=== PATIENT | male | born 1955 | race African-American/Black ===

== ENCOUNTER 2017-06-18 09:03 | Day surgery (SDC) | payer BC ==
[2017-06-18] VITALS (8 sets, daily range): BP systolic 108–126; BP diastolic 64–76
[~2017-06-18] VITALS: Ht 177.8 cm; Wt 72.6 kg
[2017-06-18] MEDS ORDERED: NKM (09:52)
--- NOTE | 2017-06-18 11:18 | Pre-Procedure Note/Attestation ---
Pre-Procedure Note/Attestation Complete Prior to Procedure Planned Procedure: not applicable Procedure Narrative: egd/colon Indications for Procedure Pre-Operative Diagnosis: gerd,screening colon Attestation I attest that I discussed the nature of the procedure; its benefits; risks and complications; and alternatives (and the risks and benefits of such alternatives ), prior to the procedure, with the patient (or the patient's legal renewals representative). I attest that, if there was a reasonable possibility of needing a blood transfusion, the patient (or the patient's legal renewals representative) was given the [facility] standardized written summary, pursuant to the Bryan Valente Blood Safety Act ([place] Health and Safety Code # 1645, as amended). I attest that I re-evaluated the patient just prior to the surgery and that there has been no change in the patient's H&P, except as documented below: NATALIO SAENZ Jun 18, 2017 11:18
[2017-06-18] MEDS ORDERED: Propofol 10mg/ml 20ml IV ONE (11:30)
[2017-06-18] MEDS ORDERED: Lidocaine 1% MPF 10mg/ml 5ml ONE (11:30)
--- NOTE | 2017-06-18 11:50 | Endoscopy Procedure Note ---
Endoscopy Procedure Note Indication for Procedure: gerd, screening colon Procedures Performed: EGD, colonoscopy Operative Findings/Diagnosis: gastritis, hemorrhoids Specimen: yes Pt Tolerated Procedure Well: Yes Estimated Blood Loss: none Anesthesiologist: marcin Anesthesia: MAC Implant(s) used?: No 50 yrs or older w/o bx or poly: Yes 10yrs. F/U not recommended: Yes If not recommended, why?: Above average risk 10 yrs. F/U needed: Yes 18 years or older w/prev. colo: Yes <3yrs. since last colonoscopy: No NATALIO SAENZ Jun 18, 2017 11:50
[2017-06-18] MEDS ORDERED: DiphenhydrAMINE 50mg/ml Inj IVP PRN (12:00)
[2017-06-18] MEDS ORDERED: Midazolam 2mg/2ml Inj IVP PRN (12:00)
[2017-06-18] MEDS ORDERED: Atropine Inj 1mg/10ml Syr IV PRN (12:00)
[2017-06-18] MEDS ORDERED: Hydromorphone 0.5mg/0.5ml inj IVP PRN (12:00)
--- NOTE | 2017-06-18 12:00 | Anethesia Preoperative Eval ---
Anesthesia Pre-op PMH/ROS General Date of Evaluation: Jun 18, 2017 Time of Evaluation: 06:30 Anesthesiologist: susan ASA Score: ASA 1 Mallampati Score Class I : Soft palate, uvula, fauces, pillars visible Class II: Soft palate, uvula, fauces visible Class III: Soft palate, base of uvula visible Class IV: Only hard plate visible Mallampati Classification: Class III Surgeon: elo Diagnosis: colon screening Surgical Procedure: gd/colonocopy Anesthesia History: none Family History: no anesthesia problems Allergies: Coded Allergies: No Known Allergies (Unverified , 06/17/17) Medications: see eMAR Past Medical History Musculoskeletal/Integumentary: Reports: other - back pain Anesthesia Pre-op Phys. Exam Physician Exam Last Vital Signs Date Time Temp Pulse Resp B/P Pulse Ox O2 Delivery O2 Flow Rate FiO2 06/18/17 09:47 97.5 66 18 112/74 98 Room Air Constitutional: NAD Neurologic: CN 2-12 intact Cardiovascular: RRR Respiratory: CTA Gastrointestinal: S/NT/ND Airway Exam Mallampati Score: Class III MO: full Neck: supple TMD: 3fb ROM: full Teeth: intact Anesthesia Pre-op A/P Risk Assessment & Plan Assessment: asa1 Plan: mac Status Change Before Surgery: No Pre-Antibiotics Drug: JAY Madrigal Jun 18, 2017 12:00
--- NOTE | 2017-06-18 12:05 | Immediate Post-Op Evaluation ---
Immediate Post-Op Evalulation Immediate Post-Op Evalulation Procedure: egd/colonocopy Date of Evaluation: Jun 18, 2017 Time of Evaluation: 12:31 IV Fluids: 0.9ns Blood Products: none Estimated Blood Loss: negligible Blood Pressure Systolic: 112 Blood Pressure Diastolic: 64 Pulse Rate: 74 Respiratory Rate: 18 O2 Sat by Pulse Oximetry: 99 Temperature (Fahrenheit): 97.2 Pain Score (1-10): 0 Nausea: No Vomiting: No Complications none Patient Status: awake, reacts, patent Hydration Status: adequate Drug: JAY Madrigal Jun 18, 2017 12:05
--- NOTE | 2017-06-18 14:18 | 48 Hour Post Anesthesia Eval ---
Post Anesthesia Evaluation Procedure: egd/colonocopy Date of Evaluation: Jun 18, 2017 Time of Evaluation: 14:17 Blood Pressure Systolic: 110 0: 71 Pulse Rate: 68 Respiratory Rate: 17 Temperature (Fahrenheit): 97.2 O2 Sat by Pulse Oximetry: 99 Airway: patent Nausea: No Vomiting: No Pain Intensity: 0 Hydration Status: adequate Cardiopulmonary Status: stable Mental Status/LOC: patient returned to baseline Post-Anesthesia Complications: none Follow-up care needed: N/A JAY FRANKEL Jun 18, 2017 14:18
--- NOTE | 2017-06-18 16:16 | Procedure Note ---
DATE OF PROCEDURE: 06/18/2017 SURGEON: Christopher Mabry M.D. PROCEDURE: Upper endoscopy with biopsy and colonoscopy with biopsy. ANESTHESIOLOGIST: Josselyn Paula M.D. INSTRUMENT: Olympus adult flexible endoscope and colonoscope. INDICATION: Screening colonoscopy evaluation, black tarry stools, GERD. REASON FOR PROCEDURE: The procedure, risks, benefits, and possible consequences, including hemorrhage, aspiration, perforation and infection, and alternative treatments, were explained to the patient/legal guardian by Dr. Christopher Mabry and the patient/legal guardian understood and accepted these risks. PROCEDURE: After informed consent was obtained and the patient was adequately sedated, Olympus upper endoscope was advanced from mouth into the second portion of the duodenum and retroflexion was performed in the stomach. The patient has diffuse gastritis. Random biopsy from antrum was obtained to rule out H. pylori infection. At this time, the upper endoscope was retrieved and the patient was turned over for colonoscopy. First, rectal examination was performed, which was positive for external and internal hemorrhoids. Then, the scope was advanced from the rectum into the cecum, documented by appendix orifice, ileocecal valve, and upper quadrant palpation. Quality of prep was very good. The patient had a total of six polyps in this colonoscopy examination. Two in the ascending colon, two in the transverse, one in the descending, and one in the rectum. The two largest one were one in the ascending and one in the descending, both removed with the cold snare polypectomy technique, measured roughly about 5 mm. The other polyps were removed with the cold biopsy forceps technique. The patient tolerated the procedure without any complication. Retroflexion was performed in the rectum showed evidence of internal hemorrhoids. SUMMARY OF FINDINGS: 1. Gastritis, status post biopsy. 2. Six colonic polyps removed, see above for details. 3. Internal hemorrhoids. RECOMMENDATIONS: 1. Follow up biopsies and treat accordingly. 2. Given there are six polyps, we recommend repeat colonoscopy in three years. Christopher Mabry M.D. DR: SAGAR JOB#: [id number] CC:
--- NOTE | 2017-06-23 09:16 | Short Stay Surgery H&P ---
History of Present Illness History of Present Illness Chief Complaint gerd, screening colonoscopy HPI Jose Francisco Adames is a 61 year old male who was admitted on for Gerd,Hx Of Colon Polyps Patient History Allergies: Coded Allergies: No Known Allergies (Unverified , 06/17/17) PAST MEDICAL HISTORY: (1) GERD (gastroesophageal reflux disease) (2) Back pain Past Surgeries: Social History: Medication History Scheduled No Known Medications* (NKM - No Known Medications*), 0 ., (Reported) Review of Systems Cardiovascular: Reports: no symptoms Respiratory: Reports: no symptoms Skeletal: Reports: no symptoms Gastrointestinal: Reports: gastro esophageal reflux disease Genitourinary: Reports: no symptoms Neurologic: Reports: no symptoms Endocrine: Reports: no symptoms Hematologic: Reports: no symptoms Physical Exam Vital Signs Last Vital Signs Date Time Temp Pulse Resp B/P Pulse Ox O2 Delivery O2 Flow Rate FiO2 06/18/17 14:18 68 17 99 06/18/17 13:30 126/76 Room Air 06/18/17 13:00 96.8 Skin: normal HENT: normal Heart: normal Lungs: normal Abdomen: normal Extremities: normal Plan Plan of Care egd/colonoscopy Final Diagnosis: Attestation Are the patient's medical conditions optimized for surgery? Attestation Response: yes NATALIO SAENZ Jun 23, 2017 09:16
== END 2017-06-18 13:30 | disposition home or self-care (01) ==
LOC: GAS 09:03
DX: Z12.11 Encounter for screening for malignant neoplasm of colon (principal); D12.2 Benign neoplasm of ascending colon; D12.4 Benign neoplasm of descending colon; D12.3 Benign neoplasm of transverse colon; K62.1 Rectal polyp; K64.8 Other hemorrhoids; K64.4 Residual hemorrhoidal skin tags; K21.9 Gastro-esophageal reflux disease without esophagitis; K29.50 Unspecified chronic gastritis without bleeding; M54.9 Dorsalgia, unspecified
CPT/HCPCS: 43239; 45380; 45385; 93005; J2704; 94003; 94150